=== PATIENT | male | born 1990 | race Caucasian/White ===

== ENCOUNTER 2018-12-17 14:30 | Outpatient (AMBR) | payer MEDICAID, SELFPAY ==
--- NOTE | 2018-11-26 13:25 | PT.ODAYNRPT ---
PT Outpatient Daily Note Date of Service: November 26, 2018 OP Daily Note Visit Reasons: madisyn Outpatient Physical Therapy Treatment Date: 11/26/18 Subjective: Recent MD appt released and X-rays show union of FX site Objective: SEe f/S for therex Assessment: Improving exercise and resistive exercise tolerance with fatigue and min/moderate tissue irritability. AROM is full. Plan: Continue strengthening Length of Time (minutes) of Treatment: 30 Minutes Office Procedures PT Procedures PT Date of Service: 11/26/18 Therapeutic Exercise 30 minutes: Yes
--- NOTE | 2018-11-28 18:31 | PT.ODAYNRPT ---
PT Outpatient Daily Note Date of Service: November 28, 2018 OP Daily Note Visit Reasons: madisyn Outpatient Physical Therapy Treatment Date: 11/28/18 Subjective: Recent MD appt released and X-rays show union of FX site Objective: SEe f/S for therex Assessment: Improving exercise and resistive exercise tolerance with fatigue and min/moderate tissue irritability. AROM is full. Plan: Continue strengthening Length of Time (minutes) of Treatment: 30 Minutes Office Procedures PT Procedures PT Date of Service: 11/26/18 Therapeutic Exercise 30 minutes: Yes PT Procedures PT Date of Service: 11/28/18 Therapeutic Exercise 30 minutes: Yes
--- NOTE | 2018-12-02 13:34 | PT.ODAYNRPT ---
PT Outpatient Daily Note Date of Service: December 02, 2018 OP Daily Note Visit Reasons: madisyn Outpatient Physical Therapy Treatment Date: 12/02/18 Subjective: More pain over the anterior shoulder and he points inferior to the clavicle over pec major tendon Objective: SEe f/S for therex Assessment: Moderate tissue irritability limited exercise and resistive exercise tolerance today of the pec major region inferior to clavicle today. Plan: Continue strengthening Length of Time (minutes) of Treatment: 30 Minutes Office Procedures PT Procedures PT Date of Service: 12/02/18 Therapeutic Exercise 30 minutes: Yes PT Procedures PT Date of Service: 11/26/18 Therapeutic Exercise 30 minutes: Yes PT Procedures PT Date of Service: 11/28/18 Therapeutic Exercise 30 minutes: Yes
--- NOTE | 2018-12-04 18:25 | PT.ODAYNRPT ---
PT Outpatient Daily Note Date of Service: December 04, 2018 OP Daily Note Visit Reasons: madisyn Outpatient Physical Therapy Treatment Date: 12/04/18 Subjective: More pain over the anterior shoulder and he points inferior to the clavicle over pec minor Objective: SEe f/S for therex Assessment: Moderate tissue irritability limited exercise and resistive exercise tolerance today of the pec minor region inferior to clavicle today. Plan: Continue strengthening Length of Time (minutes) of Treatment: 30 Minutes Office Procedures PT Procedures PT Date of Service: 12/02/18 Therapeutic Exercise 30 minutes: Yes PT Procedures PT Date of Service: 11/26/18 Therapeutic Exercise 30 minutes: Yes PT Procedures PT Date of Service: 11/28/18 Therapeutic Exercise 30 minutes: Yes PT Procedures PT Date of Service: 12/04/18 Therapeutic Exercise 30 minutes: Yes
--- NOTE | 2018-12-09 14:32 | PT.ODAYNRPT ---
PT Outpatient Daily Note Date of Service: December 09, 2018 OP Daily Note Visit Reasons: madisyn Outpatient Physical Therapy Treatment Date: 12/09/18 Subjective: pt doing well as he is compliant with HEP. Objective: see flow sheet. Assessment: pt attempted BTB during one exercise but was only able to do some reps not all due to increase in pain. changed the band to green in which still causes muscle fatigue but its more tolerable. pt tends to over do it with reps if the exercise seems a little easy but then fatigues. pt is eager to get stronger soon. he demonstrates good mobility but he wants to achieve that and more. pt refused ice pack post ther ex, advised pt to use at home if needed. Plan: continue POC per PT. Office Procedures PT Procedures PT Date of Service: 12/02/18 Therapeutic Exercise 30 minutes: Yes PT Procedures PT Date of Service: 12/09/18 Therapeutic Exercise 30 minutes: Yes PT Procedures PT Date of Service: 11/26/18 Therapeutic Exercise 30 minutes: Yes PT Procedures PT Date of Service: 11/28/18 Therapeutic Exercise 30 minutes: Yes PT Procedures PT Date of Service: 12/04/18 Therapeutic Exercise 30 minutes: Yes
--- NOTE | 2018-12-11 15:03 | PT.ODAYNRPT ---
PT Outpatient Daily Note Date of Service: December 11, 2018 OP Daily Note Visit Reasons: madisyn Outpatient Physical Therapy Treatment Date: 12/11/18 Subjective: Overall better Objective: SEe f/S for therex Assessment: Low tissue irritability limited exercise and resistive exercise tolerance today of the pec minor region inferior to clavicle today. Plan: Reassess Length of Time (minutes) of Treatment: 30 Minutes Office Procedures PT Procedures PT Date of Service: 12/02/18 Therapeutic Exercise 30 minutes: Yes PT Procedures PT Date of Service: 12/09/18 Therapeutic Exercise 30 minutes: Yes PT Procedures PT Date of Service: 11/26/18 Therapeutic Exercise 30 minutes: Yes PT Procedures PT Date of Service: 11/28/18 Therapeutic Exercise 30 minutes: Yes PT Procedures PT Date of Service: 12/04/18 Therapeutic Exercise 30 minutes: Yes PT Procedures PT Date of Service: 12/11/18 Therapeutic Exercise 30 minutes: Yes
--- NOTE | 2018-12-17 15:02 | PT.ODS1RPT ---
PT OP Progress/Discharge Note Date of Service: December 17, 2018 Progress Note/DC Note Progress Note/Discharge Note: DC Note Patient Information Visit Reasons: madisyn Service Continue Service or Discharge: Discharge Discharge Date: 12/17/18 Status Subjective: Pt reports he is doing HEP and the shoulder is much stronger and moves better than before without pain, just soreness. Objective: L shoulder AROM: full into FF, abd and ERot Strength: FF: 4/5 Abduction: 4/5 Erot: 4/5 Assessment: Pt has attended Rx visits and made good progress with therapy goals. He can reach OH x10 without pain and AROM is full into FF, abd and ERot. He has improved shoulder strength to 4/5 in those planes of motion and should continue to progress with resistive HEP. Plan: D/C with HEP Office Procedures PT Procedures PT Date of Service: 12/02/18 Therapeutic Exercise 30 minutes: Yes PT Procedures PT Date of Service: 12/09/18 Therapeutic Exercise 30 minutes: Yes PT Procedures PT Date of Service: 11/26/18 Therapeutic Exercise 30 minutes: Yes PT Procedures PT Date of Service: 11/28/18 Therapeutic Exercise 30 minutes: Yes PT Procedures PT Date of Service: 12/04/18 Therapeutic Exercise 30 minutes: Yes PT Procedures PT Date of Service: 12/11/18 Therapeutic Exercise 30 minutes: Yes
== END 2018-12-22 23:59 | disposition home or self-care (01) ==
PROVIDERS: PCP Physician Assistant; Referring Provider Physician Assistant; Visit Provider Orthopaedic Surgery
DX: S42.002D Fracture of unspecified part of left clavicle, subsequent encounter for fracture with routine healing (principal); M25.512 Pain in left shoulder; W17.89XD Other fall from one level to another, subsequent encounter
CPT/HCPCS: 97110

== ENCOUNTER 2024-11-04 19:04 | Emergency (ER) | payer BC, SELFPAY ==
[2024-11-04 19:05] VITALS: BMI 33.2
[2024-11-04 20:01] VITALS: BP 151/81; PULSE 65; RESP 20; TEMP 36.8; O2SAT 96
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
[2024-11-04] MEDS: HYDROcodone/APAP 5/325 TABLET 1 TAB PO (20:37)
[2024-11-04 22:12] VITALS: RESP 18
== END 2024-11-04 22:14 | disposition home or self-care (01) ==
PROVIDERS: Emergency Provider Emergency Medicine; PCP Family Medicine
DX: S20.212A Contusion of left front wall of thorax, initial encounter (principal); W50.0XXA Accidental hit or strike by another person, initial encounter
CPT/HCPCS: 71046; 99283; A9270

== ENCOUNTER → 2024-11-05 | Outpatient (CLI) | payer BC, SELFPAY ==
--- NOTE | 2024-11-05 15:52 | XR_ITS ---
Examination: Ribs, left, with PA chest, 4 views Technique: Chest PA, RIBS AP, RPO, LPO, 4 views Exam date and time: November 05, 2024 1634 hours INDICATIONS: Left rib injury beginning one week ago Findings: Normal heart size The lungs are clear. Significant osteopenia Healed fracture left clavicle The left ribs appear intact IMPRESSION: No pneumothorax pulmonary contusion or hemothorax No acute left rib fractures noted
== END | disposition home or self-care (01) ==
LOC: CDIM 15:37
PROVIDERS: PCP Family Medicine; Referring Provider Registered Nurse; Visit Provider Registered Nurse
DX: S29.9XXA Unspecified injury of thorax, initial encounter (principal); X58.XXXA Exposure to other specified factors, initial encounter
CPT/HCPCS: 71101

== ENCOUNTER → 2024-11-21 | Outpatient (CLI) | payer BC, SELFPAY ==
[2024-11-21 09:02] LABS: Collection Type, Urine Clean Catch; Squamous Epithelial Cell,Urine 0 /hpf (0-5)
[2024-11-21 09:25] LABS: Basophils # (Auto) 0.1 Thou/mm3 (0.0-0.2); Basophils % (Auto) 1 % (0-2.5); Eosinophils # (Auto) 0.2 Thou/mm3 (0.0-0.5); Eosinophils % (Auto) 4 % (0-10); Hematocrit 43.7 % (41.0-53.0); Hemoglobin 14.5 g/dL (13.5-16.0); Immature Granulocytes % (Auto) 0 % (0-0); Immature Granulocytes Auto 0.01 Thou/mm3 (0.00-0.00); Lymphocytes # (Auto) 1.4 Thou/mm3 (1.0-4.8); Lymphocytes % (Auto) 26 % (10-50); Mean Corpuscular HGB Conc 33.2 g/dl (31.0-37.0); Mean Corpuscular Hemoglobin 28.5 pg (25.0-35.0); Mean Corpuscular Volume 86 fL (80-100); Monocytes # (Auto) 0.5 Thou/mm3 (0.0-0.8); Monocytes % (Auto) 9 % (0-12); Neutrophils # (Auto) 3.4 Thou/mm3 (1.8-7.7); Neutrophils % (Auto) 60 % (37-80); Nucleated Red Blood Cell % 0 /100 WBC (0); Platelet Count 263 Thou/mm3 (140-440); RDW Standard Deviation 39.6 fL (35.1-43.9); Red Blood Count 5.09 Miln/mm3 (4.50-5.90); White Blood Count 5.6 Thou/mm3 (3.8-10.6)
[2024-11-21 09:30] LABS: Bilirubin,Urine Negative (Negative); Blood,Urine Negative (Negative); Clarity,Urine Clear (Clear/Hazy); Color,Urine Lt-Yellow (Lt Yel-Yel); Culture Indicated,Urine Not Indicated; Glucose, Urine Negative (Negative); Ketones,Urine Negative (Negative); Leukocyte Esterase,Urine Negative (Negative); Nitrite,Urine Negative (Negative); PH,Urine 6.5 (5.0-7.0); Protein,Urine Negative (Neg - Trace); RBC,Urine 1 /hpf (0-3); Urobilinogen,Urine Negative mg/dL (0.0-1.0); WBC,Urine < 1 /hpf (0-5)
[2024-11-21 09:39] LABS: Prostate Specific Antigen 0.61 ng/mL (0-4.00); T4 (Thyroxine) 7.6 mcg/dL (4.5-10.9)
[2024-11-21 09:41] LABS: Glucose Estimated Average 100 mg/dL (80-131); Hemoglobin A1C 5.1 % Hgb (4.8-6.0)
[2024-11-21 09:42] LABS: Vitamin B12 523 pg/mL (211-911); Vitamin D 25 Hydroxy Total 35.9 ng/mL (7.3-40.2)
[2024-11-21 09:43] LABS: Alanine Aminotransferase 16 U/L (10-49); Albumin, Serum 4.6 gm/dL (3.5-5.0); Albumin/Globulin Ratio 1.9 (1.2-2.2); Alkaline Phosphatase 78 U/L (46-116); Anion Gap 6 (7-16); Aspartate Amino Transferase 18 U/L (0-34); BUN/Creatinine Ratio 13 Ratio (12-20); Blood Urea Nitrogen 10 mg/dL (9-23); Calcium 9.9 mg/dL (8.3-10.6); Calcium (Corrected) 9.9 mg/dL (8.5-10.1); Carbon Dioxide 28.4 mMol/L (20.0-31.0); Cardiac Risk Estimate 3.4 RATIO (4.0-6.7); Chloride 107 mMol/L (98-107); Cholesterol 201 mg/dL (132-200); Creatinine (Component) 0.8 mg/dL (0.6-1.3); Globulin 2.4 gm/dL (2.3-3.5); Glucose 90 mg/dL (74-106); HDL Cholesterol 60 mg/dL (40-60); LDL Cholesterol,Calculated 124 mg/dL (0-130); Osmolality,Calculated 280 (275-295); Potassium 4.5 mMol/L (3.4-5.1); Sodium 141 mMol/L (136-145); Triglycerides 87 mg/dL (30-150); eGFR > 60 See Note
[2024-11-21 16:58] LABS: RA Screen Negative (Negative)
[2024-12-01 06:55] LABS: ANA Screen, IFA NEGATIVE (NEGATIVE)
== END | disposition home or self-care (01) ==
LOC: COPL 08:23
PROVIDERS: PCP Family Medicine; Referring Provider Registered Nurse; Visit Provider Registered Nurse
DX: R79.89 Other specified abnormal findings of blood chemistry (principal); M79.18 Myalgia, other site
CPT/HCPCS: 36415; 80053; 80061; 81001; 82306; 82607; 83036; 84153; 84436; 84443; 85025; 86038; 86430